=== PATIENT | female | born 1990 | race Caucasian/White ===

== ENCOUNTER 2016-05-24 21:28 | Emergency (ER) | payer OTHER ==
[~2016-05-24 21:28] MED LIST: ALBUTEROL HFA60 DOSE IN; DULERA1 AE1
--- NOTE | 2016-05-24 23:06 | DIAGNOSTIC IMAGING REPORT ---
PROCEDURE: XR CHEST 1 VIEW INDICATION: ASTHMA TECHNIQUE: Portable AP view 10:28 p.m. COMPARISON: Chest x-ray 01/07/2016 FINDINGS: Lungs are clear. Heart and mediastinum are normal. Thorax is normal. No significant interval change. IMPRESSION: 1. Negative chest.
--- NOTE | 2016-05-24 23:45 | ED ORDER SUMMARY ---
..... Patient: REY HOUSTON OrderSheet [facility] VisitID: [id number] [address] [place] [address] 26y, F Registration Date/Time: 05/24/2016 ORDER SHEET Weight: 56.6 kg Allergies: No Known Drug Allergy GENERAL ORDERS: Chest 1V Urgent (21:36 05/24/2016 Stella Mott) (Ack 21:37 SRemary) (22:40 Milton) Urine Urgent (21:36 05/24/2016 Stella Mott) (Ack 21:37 SRemary) (22:07 TBowen R.N.) CBC w Diff Urgent (22:16 05/24/2016 Stella Mott) (Ack 22:18 SRemary) (22:38 TBowen R.N.) BMP Urgent (22:16 05/24/2016 Stella Mott) (Ack 22:18 Dede) (22:38 TBowen R.N.) Urine Drug Screen Urgent (22:16 05/24/2016 Stella Mott) (Ack 22:18 SRemary) (22:38 TBowen R.N.) MEDICATION ORDERS: Albuterol Neb Tx 10 mg (NOW) (21:36 05/24/2016 Stella Mott) (21:42 HSoule) IV FLUIDS: IV NS : initial bolus 1000 mL (1000 mL/hr), then none - for X1 (NOW) (22:25 05/24/2016 Stella Mott) (22:39 TBowen R.N.) ORDER SHEET NOTES: [Electronically signed by Vaishnavi Guzman R.N. (23:57 05/24/2016)] [Electronically signed by Tam Cole Dr. (07:19 05/25/2016)] [Electronically locked/signed by Vaishnavi Guzman R.N. (23:57 05/24/2016)]
--- NOTE | 2016-05-24 23:45 | ED ORDER SUMMARY ---
..... Patient: REY HOUSTON OrderSheet [facility] VisitID: [id number] [address] [place] [address] 26y, F Registration Date/Time: 05/24/2016 ORDER SHEET Weight: 56.6 kg Allergies: No Known Drug Allergy GENERAL ORDERS: Chest 1V Urgent (21:36 05/24/2016 Stella Mott) (Ack 21:37 SRemary) (22:40 Milton) Urine Urgent (21:36 05/24/2016 Stella Mott) (Ack 21:37 SRemary) (22:07 TBowen R.N.) CBC w Diff Urgent (22:16 05/24/2016 Stella Mott) (Ack 22:18 SRemary) (22:38 TBowen R.N.) BMP Urgent (22:16 05/24/2016 Stella Mott) (Ack 22:18 Dede) (22:38 TBowen R.N.) Urine Drug Screen Urgent (22:16 05/24/2016 Stella Mott) (Ack 22:18 SRemary) (22:38 TBowen R.N.) MEDICATION ORDERS: Albuterol Neb Tx 10 mg (NOW) (21:36 05/24/2016 Stelal Mott) (21:42 HSoule) IV FLUIDS: IV NS : initial bolus 1000 mL (1000 mL/hr), then none - for X1 (NOW) (22:25 05/24/2016 Stella Mott) (22:39 TBowen R.N.) ORDER SHEET NOTES: [Electronically signed by Vaishnavi Guzman R.N. (23:57 05/24/2016)] [Electronically signed by Tam Cole Dr. (07:19 05/25/2016)] [Electronically locked/signed by Vaishnavi Guzman R.N. (23:57 05/24/2016)]
--- NOTE | 2016-05-24 23:45 | ED NURSING NOTES ---
Clinical Report - Nurses [facility] [address] [place] [address] 05/24/2016 21:29 Patient: REY HOUSTON TRIAGE Triage time 21:34. Chief Complaint: WHEEZING. --21:37 Lyle Hernandez. 21:34 05/24/16. BP: 112/73. HR: 119. RR: 22. O2 saturation: 93%. Temp: 98.1 F. Pain level now: 0/10. --21:37 Lyle Hernandez. Acuity: LEVEL 3. --21:38 Lyle Hernandez. Weight: 56.6 kg. Height/Length: 62 inches. BMI: 22.8. --21:36 Lyle Hernandez. Allergies No Known Drug Allergy. --21:35 Katelynn Hernandez History Arrived by EMS. Historian: patient. Accompanied by friend. ( pt is out of her inhaler and predisone). This started today. ( pt got a&A in route and solumedrol by ems). Treatment APPLICATIONS INTERN: Took breathing treatment x2. See EMS report. PAST MEDICAL HX: Lung disease. No history of hypertension or heart disease. No known contact with a sick individual. Immunizations: up-to-date. Last normal menstrual period- 3 weeks ago. No recent travel. SOCIAL HX: No alcohol use or drug use. No infectious disease exposure. FALL RISK ASSESSMENT: Fall risk assessment completed. No fall risk identified. NUTRITIONAL RISK ASSESSMENT: The nutritional risk assessment revealed no deficiencies. FUNCTIONAL ASSESSMENT: Functional assessment: no impairments noted. LEARNING NEEDS ASSESSMENT: The learning needs assessment revealed no barriers. SKIN INTEGRITY ASSESSMENT: Skin integrity risk assessment completed. No skin integrity risk identified. --21:37 Lyle Hernandez. ADDITIONAL SURGERIES: no known surgeries. Interventions ID band on patient. To treatment room. --21:38 Lyle Hernandez. PHYSICAL ASSESSMENT To room via stretcher. GENERAL / NEURO / PSYCH: Alert. Oriented X 4. Appears anxious. HEENT: Pupils equal, round and reactive to light. Ears within normal limits. Nares within normal limits. Mouth within normal limits upon inspection. Pharynx within normal limits. Voice within normal limits. Mucous membranes are pink. RESPIRATORY: Mild respiratory distress. The patient can speak in full sentences. Wheezes bilaterally. CVS: Normal sinus rhythm noted. Capillary refill less than 2 seconds. SKIN: Skin is warm and dry. Normal skin turgor. --21:38 Katelynn Hernandez NURSING PROGRESS NOTES Oxygen administered. project manager interior design, pulse oximeter and NIBP monitor placed on patient. Head of bed elevated. Two patient identifiers checked. Call light placed in reach. Side rails up x 2. Bed placed in lowest position. Brakes of bed on. ( NEB TX in progress at this time). --21:39 Katelynn Hernandez 21:42 05/24/2016 Albuterol [place] Nebulizer 1 unit dose given. Given by the respiratory therapist. Allergies verified and confirmed 5 rights. --21:42 Emi Mata 22:14 05/24/2016 Site #1 started prior to arrival by EMS via IV in the left hand with an 20g angiocath. --22:39 Katelynn Hernandez 22:39 05/24/2016 Started IV Fluids IV NS (Saline); at 1000 mL/hr over 1 hour(s) via site #1 via dial-a-flow. Allergies verified and confirmed 5 rights. IV patency established. IV site checked: no pain, redness, or swelling. IV flushed thoroughly pre- and post-medication administration. --22:39 Katelynn Hernandez 23:56 05/24/2016 IV Fluids IV NS Discontinued: completed upon discharge. Total amount infused: 1000 mL. --23:57 Katelynn Hernandez DISPOSITION / DISCHARGE 23:54 05/24/2016 Site #1 removed upon discharge. Catheter intact. Bandage applied. --23:54 Katelynn Hernandez Condition at departure: improved. No learning barriers present. Discharge instructions provided and reviewed with the patient. Reviewed medication(s) side effects, precautions, dosing and course information. Prescription(s) given to the patient. Treatments reviewed. Reviewed referrals. Follow up contact number. Patient verbalized understanding. Written instructions provided in Syriac. No diet instructions, activity restrictions or stop smoking instructions. The patient was discharged by the physician. She was discharged home and accompanied by wired music operator. She left the Emergency Department ambulatory and via taxi. FALL RISK ASSESSMENT: Fall risk assessment completed. No fall risk identified. --23:56 Katelynn Hernandez 23:54 05/24/16. BP: 101/61. HR: 117. RR: 18. O2 saturation: 94% on room air. Temp: 97.9 F. Pain level now: 0/10. --23:56 Katelynn Hernandez Departure time: 23:56. --23:56 Katelynn Hernandez Locked/Released at 05/24/2016 23:57 by Katelynn Hernandez
--- NOTE | 2016-05-24 23:45 | ED CLINICAL REPORT ---
Clinical Report - Physicians/Mid Levels [facility] [address] [place] [address] 05/24/2016 21:29 Patient: REY HOUSTON Time Seen: 2039. Arrived- By ambulance. Historian- patient. HISTORY OF PRESENT ILLNESS Chief Complaint: WHEEZING and HISTORY OF ASTHMA. This started today and is still present and worsening. It was abrupt in onset and has been constant but is not gone now. No cough, sputum production, orthopnea or chest pain or discomfort. Asthma triggers: unknown. Takes asthma medications. Similar symptoms previously: Many times. Recent medical care: Not recently seen/assessed. REVIEW OF SYSTEMS No sore throat, nasal discharge, sinus drainage, fever or chills. No skin rash or pedal edema. All systems otherwise negative, except as recorded above. PAST HISTORY See nurses notes. Additional Surgeries: no known surgeries. Allergies: No Known Drug Allergy. SOCIAL HISTORY Never smoker. History of drug use. No alcohol use. No recent travel. Is a local resident. ADDITIONAL NOTES The nursing notes have been reviewed. PHYSICAL EXAM Vital Signs: 05/24/2016 21:34 BP: 112/73. HR: 119. RR: 22. O2 saturation: 93%. Temp: 98.1 F. Pain level now: 0/10. Blood pressure normal. Oxygen saturation normal. Appearance: Alert. No acute distress. Neck: Normal inspection. Neck supple. CVS: Normal heart rate and rhythm. Heart sounds normal. Pulses normal. Respiratory: Moderate respiratory distress. Expiratory moderate bilateral wheezes diffusely. No stridor, rales or rhonchi. Abdomen: Soft and nontender. No organomegaly. Skin: Skin warm and dry. Normal skin color. No rash. Normal skin turgor. Extremities: No lower extremity edema. No calf tenderness. (splint to the right wrist). LABS, X-RAYS, AND EKG Chest X-ray: No acute disease. Normal lung markings present. No infiltrate. (heart shapped object confirmed to be on bra. negative chest). Views: AP (portable). Technique: good. The X-rays were independently viewed by me and interpreted contemporaneously by me. Laboratory Tests: Urine: (SUKHWINDER: 05/24/2016 22:00) ( [facility]/24/[facility] 22:14) Final results Test Result Flag Units (Reference) URINE NEGATIVE CBC w Diff: (SUKHWINDER: 05/24/2016 22:30) ( [facility] 05/24/2016 22:38) Final results Test Result Flag Units (Reference) WHITE BLOOD COUNT 19.0 H K/uL (4.5-11.5) RED BLOOD COUNT 4.90 M/uL (4.00-5.20) HEMOGLOBIN 14.8 gm/dL (12.0-16.0) HEMATOCRIT 44.3 % (36.0-46.0) MEAN CELL VOLUME 91 fL (80-100) MEAN CORPUSCULAR HGB 30 pg (26-34) MEAN CORPUSCULAR HGB CONC 34 g/dL (31-37) RED CELL DISTRIBUTION WIDTH 13.5 % (11.6-14.8) PLATELET COUNT 346 K/uL (150-400) NEUTROPHIL % 56.6 % (50-75) LYMPH % 22.5 L % (25-40) MONO % 3.4 % (3-14) EOSINOPHIL % 17.1 H % (0-4) BASOPHIL % 0.4 % (0-2) Urine Drug Screen: (SUKHWINDER: 05/24/2016 22:00) ( [facility] 05/24/2016 22:34) Final results Test Result Flag Units (Reference) AMPHETAMINE/METHAMPHETAMINE POSITIVE H (NEGATIVE) BARBITURATE NEGATIVE (NEGATIVE) BENZODIAZEPINE NEGATIVE (NEGATIVE) CANNABINOID NEGATIVE (NEGATIVE) COCAINE NEGATIVE (NEGATIVE) ECSTASY POSITIVE H (NEGATIVE) METHADONE NEGATIVE (NEGATIVE) OPIATE POSITIVE H (NEGATIVE) The urine drug screen is a qualitative screening test fordrug overdose and abuse. All screen results should beconsidered as presumptive.Drugs screened for are as follows:BenzodiazepinesCocaineAmphetamines/MetamphetaminesTHC (Tetrahydrocannabinol)OpiatesBarbituratesEcstasyMethadonePositive results are unconfirmed. For confirmation, notifythe lab for the specimen to be sent to the reference lab.All confirmations must be performed by a differentmethodology.The ingestion of natural herbal and plant productscontaining Ephedra/Ephedra metabolites can produce in urineone or more substances capable of cross reacting withamphetamine/methamphetamine immunoassays. These testsprovide a preliminary result only. A more specificalternative chemical method must be used to obtain aconfirmed analytical result. BMP: (SUKHWINDER: 05/24/2016 22:30) ( [facility] 05/24/2016 23:13) Final results Test Result Flag Units (Reference) GLUCOSE 85 mg/dL (70-110) BUN 9 mg/dL (7-18) CREATININE 0.4 L mg/dL (0.6-1.3) Estimated GFR >60 mL/min Estimated GFR- >60 mL/min Note: Persistent reduction over 3 months in eGFR<60 mL/min/1.73 m2 defines CKD. Patients with eGFR values>=60 mL/min/1.73 m2 may also have CKD if evidence ofpersistent proteinuria. Additional information may be foundat www.kidney.org. SODIUM 147 H mmol/L (136-145) POTASSIUM 3.7 mmol/L (3.5-5.1) CHLORIDE 119 H mmol/L (98-107) CARBON DIOXIDE 17 L mmol/L (21-32) CALCIUM 8.6 mg/dL (8.5-10.1) . PROGRESS AND PROCEDURES Course of Care: he patient is a pleasant 26-year-old female with past medical history significant for asthma and substance abuse presenting for evaluation of acute asthma exacerbation. The patient reports that she hadrun out of her prednisone medication and had an exacerbation secondary to running out of these medications. Patient initially had reported not having any recent use of illicit substances however urinalysis does show that the patienthadrecently used illicit substances. Had spoken to patient in regards to this. Again I expressed my deep concern for her substance abuse and concern for her safety if she continues to use these medications. Offered resources and help and encouraged patient to seektreatment. Patient reports that she would think about this. Patient was monitored in the emergency department and given breathing treatments aggressively while here. She was also monitored after having receiving breathing treatments. Patient noted significant improvement with wheezing on here in the emergency department and noted to have significant improvement with her respiratory status. Had a discussion with patient in regards to admission the hospital however this time patient is reluctant to sew. Explained to patient my concern for her asthma exacerbation. Patient reports that she understands and will return immediately for any worsening of her symptoms. Prior to patient's departure from the emergency Department patient was noted to be breathing in no acute distress. Patient was again spoken to in regards to staying in the hospital [place] patient again would like tomedicate at home. Refills of her medications are provided including prednisone as well asalbuterol inhalers. I discussed with patient her workup here in the emergency department, home care, follow-up, and return precautions. All questions have been answered. The patient expressed understanding of these instructions and was agreeable to them. Disposition: Discharged. Condition: good. CLINICAL IMPRESSION 05/24/2016 21:34 BP: 112/73. HR: 119. RR: 22. O2 saturation: 93%. Temp: 98.1 F. Pain level now: 0/10. Blood pressure normal. Oxygen saturation normal. Severe persistent asthma with an acute exacerbation. No status asthmaticus. INSTRUCTIONS Warnings: GENERAL WARNINGS: Return or contact your physician immediately if your condition worsens or changes unexpectedly, if not improving as expected, or if other problems arise. Specifically return if pain, vomiting, bleeding, breathing difficulty or fever. Prescription Medications: Albuterol HFA oral inhaler: inhale 1-2 puffs every 4 hours as needed for wheezing, difficulty breathing or shortness of breath. Dispense two (2) units. No refill. Prednisone. Dispense thirty (30). No refills. (Take 60 mg for 5 days then take 20 mg a day as directed by your doctor) Follow-up: Return to the emergency department as needed. Follow up with your doctor in three days. Reason for referral: recheck today's concerns. Summary of care provided to patient via paper. Screening today revealed the patient's blood pressure to be in the normal range. The patient should follow up with a primary care provider for blood pressure management. Understanding of the discharge instructions verbalized by patient. (Electronically signed by Tam Cole Dr. 05/25/2016 7:19)
--- NOTE | 2016-05-24 23:45 | ED NURSING NOTES ---
Clinical Report - Nurses [facility] [address] [place] [address] 05/24/2016 21:29 Patient: REY HOUSTON TRIAGE Triage time 21:34. Chief Complaint: WHEEZING. --21:37 Lyle Hernandez. 21:34 05/24/16. BP: 112/73. HR: 119. RR: 22. O2 saturation: 93%. Temp: 98.1 F. Pain level now: 0/10. --21:37 Lyle Hernandez. Acuity: LEVEL 3. --21:38 Lyle Hernandez. Weight: 56.6 kg. Height/Length: 62 inches. BMI: 22.8. --21:36 Lyle Hernandez. Allergies No Known Drug Allergy. --21:35 Katelynn Hernandez History Arrived by EMS. Historian: patient. Accompanied by friend. ( pt is out of her inhaler and predisone). This started today. ( pt got a&A in route and solumedrol by ems). Treatment [facility] TECH: Took breathing treatment x2. See EMS report. PAST MEDICAL HX: Lung disease. No history of hypertension or heart disease. No known contact with a sick individual. Immunizations: up-to-date. Last normal menstrual period- 3 weeks ago. No recent travel. SOCIAL HX: No alcohol use or drug use. No infectious disease exposure. FALL RISK ASSESSMENT: Fall risk assessment completed. No fall risk identified. NUTRITIONAL RISK ASSESSMENT: The nutritional risk assessment revealed no deficiencies. FUNCTIONAL ASSESSMENT: Functional assessment: no impairments noted. LEARNING NEEDS ASSESSMENT: The learning needs assessment revealed no barriers. SKIN INTEGRITY ASSESSMENT: Skin integrity risk assessment completed. No skin integrity risk identified. --21:37 Lyle Hernandez. ADDITIONAL SURGERIES: no known surgeries. Interventions ID band on patient. To treatment room. --21:38 Lyle Hernandez. PHYSICAL ASSESSMENT To room via stretcher. GENERAL / NEURO / PSYCH: Alert. Oriented X 4. Appears anxious. HEENT: Pupils equal, round and reactive to light. Ears within normal limits. Nares within normal limits. Mouth within normal limits upon inspection. Pharynx within normal limits. Voice within normal limits. Mucous membranes are pink. RESPIRATORY: Mild respiratory distress. The patient can speak in full sentences. Wheezes bilaterally. CVS: Normal sinus rhythm noted. Capillary refill less than 2 seconds. SKIN: Skin is warm and dry. Normal skin turgor. --21:38 Katelynn Hernandez NURSING PROGRESS NOTES Oxygen administered. business office associate, pulse oximeter and NIBP monitor placed on patient. Head of bed elevated. Two patient identifiers checked. Call light placed in reach. Side rails up x 2. Bed placed in lowest position. Brakes of bed on. ( NEB TX in progress at this time). --21:39 Katelynn Hernandez 21:42 05/24/2016 Albuterol [place] Nebulizer 1 unit dose given. Given by the respiratory therapist. Allergies verified and confirmed 5 rights. --21:42 Emi Mata 22:14 05/24/2016 Site #1 started prior to arrival by EMS via IV in the left hand with an 20g angiocath. --22:39 Katelynn Hernandez 22:39 05/24/2016 Started IV Fluids IV NS (Saline); at 1000 mL/hr over 1 hour(s) via site #1 via dial-a-flow. Allergies verified and confirmed 5 rights. IV patency established. IV site checked: no pain, redness, or swelling. IV flushed thoroughly pre- and post-medication administration. --22:39 Katelynn Hernandez 23:56 05/24/2016 IV Fluids IV NS Discontinued: completed upon discharge. Total amount infused: 1000 mL. --23:57 Katelynn Hernandez DISPOSITION / DISCHARGE 23:54 05/24/2016 Site #1 removed upon discharge. Catheter intact. Bandage applied. --23:54 Katelynn Hernandez Condition at departure: improved. No learning barriers present. Discharge instructions provided and reviewed with the patient. Reviewed medication(s) side effects, precautions, dosing and course information. Prescription(s) given to the patient. Treatments reviewed. Reviewed referrals. Follow up contact number. Patient verbalized understanding. Written instructions provided in Indonesian. No diet instructions, activity restrictions or stop smoking instructions. The patient was discharged by the physician. She was discharged home and accompanied by speech therapy teacher. She left the Emergency Department ambulatory and via taxi. FALL RISK ASSESSMENT: Fall risk assessment completed. No fall risk identified. --23:56 Katelynn Hernandez 23:54 05/24/16. BP: 101/61. HR: 117. RR: 18. O2 saturation: 94% on room air. Temp: 97.9 F. Pain level now: 0/10. --23:56 Katelynn Hernandez Departure time: 23:56. --23:56 Katelynn Hernandez Locked/Released at 05/24/2016 23:57 by Katelynn Hernandez
--- NOTE | 2016-05-25 07:19 | ED DISCHARGE INSTRUCTIONS ---
Patient: REY HOUSTON General Instructions [facility] VisitID: [id number] [address] [place] [address] 26y, F Registration Date/Time: 05/24/2016 05/24/2016 21:34 BP: 112/73. HR: 119. RR: 22. O2 saturation: 93%. Temp: 98.1 F. Pain level now: 0/10. Blood pressure normal. Oxygen saturation normal. Severe persistent asthma with an acute exacerbation. No status asthmaticus. INSTRUCTIONS Warnings: GENERAL WARNINGS: Return or contact your physician immediately if your condition worsens or changes unexpectedly, if not improving as expected, or if other problems arise. Specifically return if pain, vomiting, bleeding, breathing difficulty or fever. Prescription Medications: Albuterol HFA oral inhaler: inhale 1-2 puffs every 4 hours as needed for wheezing, difficulty breathing or shortness of breath. Dispense two (2) units. No refill. Prednisone. Dispense thirty (30). No refills. (Take 60 mg for 5 days then take 20 mg a day as directed by your doctor) Follow-up: Return to the emergency department as needed. Follow up with your doctor in three days. Reason for referral: recheck today's concerns. Summary of care provided to patient via paper. Screening today revealed the patient's blood pressure to be in the normal range. The patient should follow up with a primary care provider for blood pressure management. Understanding of the discharge instructions verbalized by patient. ADDITIONAL INFORMATION Asthma [Adult] Asthma is a disease where the small air passages within the lung go into spasm and restrict the flow of air. Inflammation and swelling of the airways cause further restriction. During an acute asthma attack, these factors cause difficulty breathing, wheezing, cough and chest tightness. An asthma attack can be triggered by many things. Common triggers include the common cold, bronchitis, pneumonia, irritants such as smoke or pullutants in the air, emotional upset and heavy exercise. Inmany adults with asthma, allergies todust, mold, pollen and animal dander can cause an asthma attack. Skipping doses of daily asthma medicine can also bring on an asthma attack. Asthma can be controlled with proper medicines and decreased exposure to known allergens. Home Care: Take prescribed medicine exactly at the times advised. If you have a hand-held inhaler or aerosol breathing medicine, do not use it more than once every four hours, unless told to do so. (If you need this medicine more than every four hours, you may need to return to the Emergency Room.) If prescribed an antibiotic or prednisone, take all of the medicine even if you are feeling better after a few days. Do not smoke. Avoid being exposed to the smoke of others. Some persons with asthma have worsening of their symptoms when they take aspirin and non-steroidal medicines like ibuprofen (Motrin, Advil) and naproxen (Aleve, Naprosyn). Talk to your doctor if you think this may apply to you. Acetaminophen (Tylenol)should be safe to use. Follow Up with your doctor, or as advised by our staff. Always bring all of your current medicines with you for your doctor to see. If you do not already have one, talk to your doctor about developing a personalized "Asthma Action Plan." [NOTE: A pneumococcal vaccine and yearly flu shot (every fall) are recommended. Ask your doctor about this.] Get Prompt Medical Attention if any of the following occur: Increased wheezing or shortness of breath Need to use your inhalers more often than usual without relief Fever of 100.4F (38C) or higher, or as directed by your healthcare provider Coughing up lots of dark-colored or bloody sputum (mucus) Chest pain with each breath You do not start to improve within 24 hours Call 911 If Any Of The Following Occur : Trouble walking or talking because of shortness of breath If you use a peak flow meter andyou are still in the red zone (less than 50 percent) 15 minutes after using inhaler medication Lips or fingernails turning khan or blue Albuterol Sulfate Pressurized inhalation, suspension What is this medicine? ALBUTEROL (al BYOO ter ole) is a bronchodilator. It helps open up the airways in your lungs to make it easier to breathe. This medicine is used to treat and to prevent bronchospasm. How should I use this medicine? This medicine is for inhalation through the mouth. Follow the directions on your prescription label. Take your medicine at regular intervals. Do not use more often than directed. Make sure that you are using your inhaler correctly. Ask you doctor or health care provider if you have any questions. Talk to your bellhop regarding the use of this medicine in children. Special care may be needed. What side effects may I notice from receiving this medicine? Side effects that you should report to your doctor or health campground caretaker as soon as possible: allergic reactions like skin rash, itching or hives, swelling of the face, lips, or tongue breathing problems chest pain feeling faint or lightheaded, falls high blood pressure irregular heartbeat fever muscle cramps or weakness pain, tingling, numbness in the hands or feet vomiting Side effects that usually do not require medical attention (report to your doctor or health campground caretaker if they continue or are bothersome): cough difficulty sleeping headache nervousness or trembling stomach upset stuffy or runny nose throat irritation unusual taste What may interact with this medicine? anti-infectives like chloroquine and pentamidine caffeine cisapride diuretics medicines for colds medicines for depression or for emotional or psychotic conditions medicines for weight loss including some herbal products methadone some antibiotics like clarithromycin, erythromycin, levofloxacin, and linezolid some heart medicines steroid hormones like dexamethasone, cortisone, hydrocortisone theophylline thyroid hormones What if I miss a dose? If you miss a dose, use it as soon as you can. If it is almost time for your next dose, use only that dose. Do not use double or extra doses. Where should I keep my medicine? Keep out of the reach of children. Store at room temperature between 15 and 30 degrees C (59 and 86 degrees F). The contents are under pressure and may burst when exposed to heat or flame. Do not freeze. This medicine does not work as well if it is too cold. Throw away any unused medicine after the expiration date. Inhalers need to be thrown away after the labeled number of puffs have been used or by the expiration date; whichever comes first. Ventolin HFA should be thrown away 12 months after removing from foil pouch. Check the instructions that come with your medicine. What should I tell my health care provider before I take this medicine? They need to know if you have any of the following conditions: diabetes heart disease or irregular heartbeat high blood pressure pheochromocytoma seizures thyroid disease an unusual or allergic reaction to albuterol, levalbuterol, sulfites, other medicines, foods, dyes, or preservatives or trying to get breast-feeding What should I watch for while using this medicine? Tell your doctor or health campground caretaker if your symptoms do not improve. Do not use extra albuterol. If your asthma or bronchitis gets worse while you are using this medicine, call your doctor right away. If your mouth gets dry try chewing sugarless gum or sucking hard candy. Drink water as directed. Prednisone Oral tablet What is this medicine? PREDNISONE (PRED ni sone) is a corticosteroid. It is commonly used to treat inflammation of the skin, joints, lungs, and other organs. Common conditions treated include asthma, allergies, and arthritis. It is also used for other conditions, such as blood disorders and diseases of the adrenal glands. How should I use this medicine? Take this medicine by mouth with a glass of water. Follow the directions on the prescription label. Take this medicine with food. If you are taking this medicine once a day, take it in the morning. Do not take more medicine than you are told to take. Do not suddenly stop taking your medicine because you may develop a severe reaction. Your doctor will tell you how much medicine to take. If your doctor wants you to stop the medicine, the dose may be slowly lowered over time to avoid any side effects. Talk to your bellhop regarding the use of this medicine in children. Special care may be needed. What side effects may I notice from receiving this medicine? Side effects that you should report to your doctor or health campground caretaker as soon as possible: allergic reactions like skin rash, itching or hives, swelling of the face, lips, or tongue changes in emotions or moods changes in vision depressed mood eye pain fever or chills, cough, sore throat, pain or difficulty passing urine increased thirst swelling of ankles, feet Side effects that usually do not require medical attention (report to your doctor or health campground caretaker if they continue or are bothersome): confusion, excitement, restlessness headache nausea, vomiting skin problems, acne, thin and shiny skin trouble sleeping weight gain What may interact with this medicine? Do not take this medicine with any of the following medications: metyrapone mifepristone This medicine may also interact with the following medications: aminoglutethimide amphotericin B aspirin and aspirin-like medicines barbiturates certain medicines for diabetes, like glipizide or glyburide cholestyramine cholinesterase inhibitors cyclosporine digoxin diuretics ephedrine female hormones, like estrogens and control pills isoniazid ketoconazole NSAIDS, medicines for pain and inflammation, like ibuprofen or naproxen phenytoin rifampin toxoids vaccines warfarin What if I miss a dose? If you miss a dose, take it as soon as you can. If it is almost time for your next dose, talk to your doctor or health campground caretaker. You may need to miss a dose or take an extra dose. Do not take double or extra doses without advice. Where should I keep my medicine? Keep out of the reach of children. Store at room temperature between 15 and 30 degrees C (59 and 86 degrees F). Protect from light. Keep container tightly closed. Throw away any unused medicine after the expiration date. What should I tell my health care provider before I take this medicine? They need to know if you have any of these conditions: Brenda's syndrome diabetes glaucoma heart disease high blood pressure infection (especially a virus infection such as chickenpox, cold sores, or herpes) kidney disease liver disease mental illness myasthenia gravis osteoporosis seizures stomach or intestine problems thyroid disease an unusual or allergic reaction to lactose, prednisone, other medicines, foods, dyes, or preservatives or trying to get breast-feeding What should I watch for while using this medicine? Visit your doctor or health campground caretaker for regular checks on your progress. If you are taking this medicine over a prolonged period, carry an identification card with your name and address, the type and dose of your medicine, and your doctor's name and address. This medicine may increase your risk of getting an infection. Tell your doctor or health campground caretaker if you are around anyone with measles or chickenpox, or if you develop sores or blisters that do not heal properly. If you are going to have surgery, tell your doctor or health campground caretaker that you have taken this medicine within the last twelve months. Ask your doctor or health campground caretaker about your diet. You may need to lower the amount of salt you eat. This medicine may affect blood sugar levels. If you have diabetes, check with your doctor or health campground caretaker before you change your diet or the dose of your diabetic medicine. You have been given the following additional information: Asthma, Acute (Adult) Albuterol Sulfate Pressurized inhalation, suspension Prednisone Oral tablet (Electronically signed by Tam Cole Dr. 05/25/2016 7:19)
--- NOTE | 2016-05-25 07:19 | ED MED RECONCILIATION SUMMARY ---
Patient: REY HOUSTON Medication Reconciliation Report [facility] VisitID: [id number] [address] [place] [address] 26y, F Registration Date/Time: 05/24/2016 Weight: 56.6 kg Height/Length: 62 in. BMI: 22.8 ALLERGIES: No Known Drug Allergy The patient's Home Medications are listed below: Not obtained. The source(s) of the original Home Medication information: Not obtained. The following Medications were given to the patient in the Emergency Department: Albuterol [Neb Tx] Neb TX 1 unit dose, administered: 05/24/2016 9:42:00 PM IV NS IV Fluids bolus 0, then 1000 mL/hr, administered: 05/24/2016 10:39:00 PM The following Medications were prescribed to the patient: Albuterol HFA oral inhaler: inhale 1-2 puffs every 4 hours as needed for wheezing, difficulty breathing or shortness of breath. Dispense two (2) units. No refill. -- Tam Cole Dr. Prednisone. Dispense thirty (30). No refills.(Take 60 mg for 5 days then take 20 mg a day as directed by your doctor) -- Tam Cole Dr.
--- NOTE | 2016-05-25 07:19 | ED DISCHARGE INSTRUCTIONS ---
Patient: REY HOUSTON General Instructions [facility] VisitID: [id number] [address] [place] [address] 26y, F Registration Date/Time: 05/24/2016 05/24/2016 21:34 BP: 112/73. HR: 119. RR: 22. O2 saturation: 93%. Temp: 98.1 F. Pain level now: 0/10. Blood pressure normal. Oxygen saturation normal. Severe persistent asthma with an acute exacerbation. No status asthmaticus. INSTRUCTIONS Warnings: GENERAL WARNINGS: Return or contact your physician immediately if your condition worsens or changes unexpectedly, if not improving as expected, or if other problems arise. Specifically return if pain, vomiting, bleeding, breathing difficulty or fever. Prescription Medications: Albuterol HFA oral inhaler: inhale 1-2 puffs every 4 hours as needed for wheezing, difficulty breathing or shortness of breath. Dispense two (2) units. No refill. Prednisone. Dispense thirty (30). No refills. (Take 60 mg for 5 days then take 20 mg a day as directed by your doctor) Follow-up: Return to the emergency department as needed. Follow up with your doctor in three days. Reason for referral: recheck today's concerns. Summary of care provided to patient via paper. Screening today revealed the patient's blood pressure to be in the normal range. The patient should follow up with a primary care provider for blood pressure management. Understanding of the discharge instructions verbalized by patient. ADDITIONAL INFORMATION Asthma [Adult] Asthma is a disease where the small air passages within the lung go into spasm and restrict the flow of air. Inflammation and swelling of the airways cause further restriction. During an acute asthma attack, these factors cause difficulty breathing, wheezing, cough and chest tightness. An asthma attack can be triggered by many things. Common triggers include the common cold, bronchitis, pneumonia, irritants such as smoke or pullutants in the air, emotional upset and heavy exercise. Inmany adults with asthma, allergies todust, mold, pollen and animal dander can cause an asthma attack. Skipping doses of daily asthma medicine can also bring on an asthma attack. Asthma can be controlled with proper medicines and decreased exposure to known allergens. Home Care: Take prescribed medicine exactly at the times advised. If you have a hand-held inhaler or aerosol breathing medicine, do not use it more than once every four hours, unless told to do so. (If you need this medicine more than every four hours, you may need to return to the Emergency Room.) If prescribed an antibiotic or prednisone, take all of the medicine even if you are feeling better after a few days. Do not smoke. Avoid being exposed to the smoke of others. Some persons with asthma have worsening of their symptoms when they take aspirin and non-steroidal medicines like ibuprofen (Motrin, Advil) and naproxen (Aleve, Naprosyn). Talk to your doctor if you think this may apply to you. Acetaminophen (Tylenol)should be safe to use. Follow Up with your doctor, or as advised by our staff. Always bring all of your current medicines with you for your doctor to see. If you do not already have one, talk to your doctor about developing a personalized "Asthma Action Plan." [NOTE: A pneumococcal vaccine and yearly flu shot (every fall) are recommended. Ask your doctor about this.] Get Prompt Medical Attention if any of the following occur: Increased wheezing or shortness of breath Need to use your inhalers more often than usual without relief Fever of 100.4F (38C) or higher, or as directed by your healthcare provider Coughing up lots of dark-colored or bloody sputum (mucus) Chest pain with each breath You do not start to improve within 24 hours Call 911 If Any Of The Following Occur : Trouble walking or talking because of shortness of breath If you use a peak flow meter andyou are still in the red zone (less than 50 percent) 15 minutes after using inhaler medication Lips or fingernails turning khan or blue Albuterol Sulfate Pressurized inhalation, suspension What is this medicine? ALBUTEROL (al BYOO ter ole) is a bronchodilator. It helps open up the airways in your lungs to make it easier to breathe. This medicine is used to treat and to prevent bronchospasm. How should I use this medicine? This medicine is for inhalation through the mouth. Follow the directions on your prescription label. Take your medicine at regular intervals. Do not use more often than directed. Make sure that you are using your inhaler correctly. Ask you doctor or health care provider if you have any questions. Talk to your manager medical affairs regarding the use of this medicine in children. Special care may be needed. What side effects may I notice from receiving this medicine? Side effects that you should report to your doctor or health physician primary care sports medicine as soon as possible: allergic reactions like skin rash, itching or hives, swelling of the face, lips, or tongue breathing problems chest pain feeling faint or lightheaded, falls high blood pressure irregular heartbeat fever muscle cramps or weakness pain, tingling, numbness in the hands or feet vomiting Side effects that usually do not require medical attention (report to your doctor or health physician primary care sports medicine if they continue or are bothersome): cough difficulty sleeping headache nervousness or trembling stomach upset stuffy or runny nose throat irritation unusual taste What may interact with this medicine? anti-infectives like chloroquine and pentamidine caffeine cisapride diuretics medicines for colds medicines for depression or for emotional or psychotic conditions medicines for weight loss including some herbal products methadone some antibiotics like clarithromycin, erythromycin, levofloxacin, and linezolid some heart medicines steroid hormones like dexamethasone, cortisone, hydrocortisone theophylline thyroid hormones What if I miss a dose? If you miss a dose, use it as soon as you can. If it is almost time for your next dose, use only that dose. Do not use double or extra doses. Where should I keep my medicine? Keep out of the reach of children. Store at room temperature between 15 and 30 degrees C (59 and 86 degrees F). The contents are under pressure and may burst when exposed to heat or flame. Do not freeze. This medicine does not work as well if it is too cold. Throw away any unused medicine after the expiration date. Inhalers need to be thrown away after the labeled number of puffs have been used or by the expiration date; whichever comes first. Ventolin HFA should be thrown away 12 months after removing from foil pouch. Check the instructions that come with your medicine. What should I tell my health care provider before I take this medicine? They need to know if you have any of the following conditions: diabetes heart disease or irregular heartbeat high blood pressure pheochromocytoma seizures thyroid disease an unusual or allergic reaction to albuterol, levalbuterol, sulfites, other medicines, foods, dyes, or preservatives or trying to get breast-feeding What should I watch for while using this medicine? Tell your doctor or health physician primary care sports medicine if your symptoms do not improve. Do not use extra albuterol. If your asthma or bronchitis gets worse while you are using this medicine, call your doctor right away. If your mouth gets dry try chewing sugarless gum or sucking hard candy. Drink water as directed. Prednisone Oral tablet What is this medicine? PREDNISONE (PRED ni sone) is a corticosteroid. It is commonly used to treat inflammation of the skin, joints, lungs, and other organs. Common conditions treated include asthma, allergies, and arthritis. It is also used for other conditions, such as blood disorders and diseases of the adrenal glands. How should I use this medicine? Take this medicine by mouth with a glass of water. Follow the directions on the prescription label. Take this medicine with food. If you are taking this medicine once a day, take it in the morning. Do not take more medicine than you are told to take. Do not suddenly stop taking your medicine because you may develop a severe reaction. Your doctor will tell you how much medicine to take. If your doctor wants you to stop the medicine, the dose may be slowly lowered over time to avoid any side effects. Talk to your manager medical affairs regarding the use of this medicine in children. Special care may be needed. What side effects may I notice from receiving this medicine? Side effects that you should report to your doctor or health physician primary care sports medicine as soon as possible: allergic reactions like skin rash, itching or hives, swelling of the face, lips, or tongue changes in emotions or moods changes in vision depressed mood eye pain fever or chills, cough, sore throat, pain or difficulty passing urine increased thirst swelling of ankles, feet Side effects that usually do not require medical attention (report to your doctor or health physician primary care sports medicine if they continue or are bothersome): confusion, excitement, restlessness headache nausea, vomiting skin problems, acne, thin and shiny skin trouble sleeping weight gain What may interact with this medicine? Do not take this medicine with any of the following medications: metyrapone mifepristone This medicine may also interact with the following medications: aminoglutethimide amphotericin B aspirin and aspirin-like medicines barbiturates certain medicines for diabetes, like glipizide or glyburide cholestyramine cholinesterase inhibitors cyclosporine digoxin diuretics ephedrine female hormones, like estrogens and control pills isoniazid ketoconazole NSAIDS, medicines for pain and inflammation, like ibuprofen or naproxen phenytoin rifampin toxoids vaccines warfarin What if I miss a dose? If you miss a dose, take it as soon as you can. If it is almost time for your next dose, talk to your doctor or health physician primary care sports medicine. You may need to miss a dose or take an extra dose. Do not take double or extra doses without advice. Where should I keep my medicine? Keep out of the reach of children. Store at room temperature between 15 and 30 degrees C (59 and 86 degrees F). Protect from light. Keep container tightly closed. Throw away any unused medicine after the expiration date. What should I tell my health care provider before I take this medicine? They need to know if you have any of these conditions: Brenda's syndrome diabetes glaucoma heart disease high blood pressure infection (especially a virus infection such as chickenpox, cold sores, or herpes) kidney disease liver disease mental illness myasthenia gravis osteoporosis seizures stomach or intestine problems thyroid disease an unusual or allergic reaction to lactose, prednisone, other medicines, foods, dyes, or preservatives or trying to get breast-feeding What should I watch for while using this medicine? Visit your doctor or health physician primary care sports medicine for regular checks on your progress. If you are taking this medicine over a prolonged period, carry an identification card with your name and address, the type and dose of your medicine, and your doctor's name and address. This medicine may increase your risk of getting an infection. Tell your doctor or health physician primary care sports medicine if you are around anyone with measles or chickenpox, or if you develop sores or blisters that do not heal properly. If you are going to have surgery, tell your doctor or health physician primary care sports medicine that you have taken this medicine within the last twelve months. Ask your doctor or health physician primary care sports medicine about your diet. You may need to lower the amount of salt you eat. This medicine may affect blood sugar levels. If you have diabetes, check with your doctor or health physician primary care sports medicine before you change your diet or the dose of your diabetic medicine. You have been given the following additional information: Asthma, Acute (Adult) Albuterol Sulfate Pressurized inhalation, suspension Prednisone Oral tablet (Electronically signed by Tam Cole Dr. 05/25/2016 7:19)
--- NOTE | 2016-05-25 07:19 | ED MAR SUMMARY ---
..... Medication Administration Record [facility] [address] [place] [address] Patient: REY HOUSTON Visit ID: [id number] 26y, F Weight: 56.6 kg Height/Length: 62 in BMI: 22.8 ALLERGIES: No Known Drug Allergy Given 21:42 05/24/2016 Emi Mata, Medication Administered: ALBUTEROL [NEB TX], Dose: 1 unit dose Nebulizer Neb TX. Medication Ordered: Albuterol Neb Tx 10 mg (NOW). Start 22:39 05/24/2016 David R.N., Stop 23:56 05/24/2016 David RDaquanN. Medication Administered: IV NS (SALINE), Dose: IV Fluids over 1 hour(s), Rate: 1000 mL/hr, Site: #1 left hand. Medication Ordered: IV NS : initial bolus 1000 mL (1000 mL/hr), then none - for X1 (NOW).
--- NOTE | 2016-05-25 07:19 | ED MAR SUMMARY ---
..... Medication Administration Record [facility] [address] [place] [address] Patient: REY HOUSTON Visit ID: [id number] 26y, F Weight: 56.6 kg Height/Length: 62 in BMI: 22.8 ALLERGIES: No Known Drug Allergy Given 21:42 05/24/2016 Emi Mata, Medication Administered: ALBUTEROL [NEB TX], Dose: 1 unit dose Nebulizer Neb TX. Medication Ordered: Albuterol Neb Tx 10 mg (NOW). Start 22:39 05/24/2016 David R.N., Stop 23:56 05/24/2016 David RDaquanN. Medication Administered: IV NS (SALINE), Dose: IV Fluids over 1 hour(s), Rate: 1000 mL/hr, Site: #1 left hand. Medication Ordered: IV NS : initial bolus 1000 mL (1000 mL/hr), then none - for X1 (NOW).
--- NOTE | 2016-05-25 07:19 | ED MED RECONCILIATION SUMMARY ---
Patient: REY HOUSTON Medication Reconciliation Report [facility] VisitID: [id number] [address] [place] [address] 26y, F Registration Date/Time: 05/24/2016 Weight: 56.6 kg Height/Length: 62 in. BMI: 22.8 ALLERGIES: No Known Drug Allergy The patient's Home Medications are listed below: Not obtained. The source(s) of the original Home Medication information: Not obtained. The following Medications were given to the patient in the Emergency Department: Albuterol [Neb Tx] Neb TX 1 unit dose, administered: 05/24/2016 9:42:00 PM IV NS IV Fluids bolus 0, then 1000 mL/hr, administered: 05/24/2016 10:39:00 PM The following Medications were prescribed to the patient: Albuterol HFA oral inhaler: inhale 1-2 puffs every 4 hours as needed for wheezing, difficulty breathing or shortness of breath. Dispense two (2) units. No refill. -- Tam Cole Dr. Prednisone. Dispense thirty (30). No refills.(Take 60 mg for 5 days then take 20 mg a day as directed by your doctor) -- Tam Cole Dr.
== END 2016-05-24 21:30 | disposition home or self-care (01) ==
LOC: ED SRH 21:28
DX: J45.51 Severe persistent asthma with (acute) exacerbation (principal)
CPT/HCPCS: 90047; 92760; 92761; 92762; 92763; 92764; 92765; 92766; 92767; 93070; 95059